=== PATIENT | female | born 1960 | race Caucasian/White ===

== ENCOUNTER 2020-10-20 07:38 | Outpatient (CLI) | payer BC, SELFPAY ==
[2020-10-20 09:13] LABS: SARS-CoV-2 RNA PCR Negative (Negative)
== END 2020-10-20 07:39 | disposition home or self-care (01) ==
LOC: CHSLAB 07:44
PROVIDERS: PCP Family Medicine; Visit Provider Family Medicine
DX: Z01.818 Encounter for other preprocedural examination (principal); Z20.822 Contact with and (suspected) exposure to COVID-19
CPT/HCPCS: C9803; U0003; U0005

== ENCOUNTER 2024-02-23 00:47 | Day surgery (SDC) | payer BC, SELFPAY ==
[2024-02-05 08:45] VITALS: BMI 26.7
[2024-02-23 12:31] VITALS: BP 148/76; PULSE 70; RESP 16; TEMP 36.1; O2SAT 100
[2024-02-23] MEDS: LACTATED RINGERS 1,000 ML 150 ML IV CONT (12:39)
--- NOTE | 2024-02-23 12:46 | P.PNAN_ITS ---
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 Patient Data Age: 63 Gender: F Height: 1.65 m Weight: 74.8 kg Last Vital Signs Temp 97 F L 02/23/24 12:31 Pulse 70 02/23/24 12:31 Resp 16 02/23/24 12:31 BP 148/76 H 02/23/24 12:31 Pulse Ox 100 02/23/24 12:31 O2 Del Method Room Air 02/23/24 12:31 Allergies Allergy/AdvReac Type Severity Reaction Status Date / Time Latex, Natural Rubber Allergy Severe Anaphylactic Verified 02/23/24 12:29 Shock shellfish derived Allergy Mild Unknown Verified 02/23/24 12:29 Sulfa (Sulfonamide Allergy Mild Unknown Verified 02/23/24 12:29 Antibiotics) Home Medications Medication Instructions Recorded Confirmed Type omeprazole 20 mg capsule,delayed 20 mg PO DAILY #90 caps 12/27/23 02/05/24 Rx release Patient hx anesthesia problems: none Family hx anesthesia problems: none Results Review: All pre-operative results and documents have been reviewed as part of the pre- operative evaluation. [facility] Past Medical History Medical History (Updated 12/27/23 @ 16:19 by Lyssa Weinstein APRN) GERD (gastroesophageal reflux disease) Surgical History Surgical History (Updated 12/27/23 @ 15:35 by Fern Schmitz MA) H/O: hysterectomy Family History Family History (Updated 12/27/23 @ 15:36 by Fern Schmitz MA) Father Esophageal cancer Father Heart disease Social History Social History (Updated 12/27/23 @ 15:37 by Fern Schmitz MA) Smoking status: Never smoker Alcohol intake: never Substance use: never Substance use type: does not use Living arrangements: alone Occupation/Education: occupation Gender identity (if verbalized by the patient): Female Spiritual care concerns: No Anes - Eval Final PreProcedure Day of Procedure 02/23/24 12:46 Patient weight: normal Heart: regular rate and rhythm Lungs: clear to auscultation Airway: Mallampati scale class II Neurological: alert and oriented Last oral intake: >/= 8 hours ASA classification: II Emergent: no Anesthetic plan: proceed Anesthesia type and monitoring: general GIVS and standard monitoring Results Review: All pre-operative results and documents have been reviewed as part of the pre- operative evaluation. Informed Consent: The patient's anesthetic plan and its attendant risks and benefits were discussed with the patient/family/POA. Questions were solicited and answers provided to the satisfaction of the patient/family/POA.
--- NOTE | 2024-02-23 12:52 | PM.HPGS ---
History of Present Illness History of Present Illness Consent: Risks, benefits, and alternatives have been discussed and questions answered. Patient agrees to proceed with procedure. Chief complaint: Tena's esophagus without dysplasia Narrative: Isela Archibald is a 63 year old female with tena's, last egd 2020 Review of Systems Review of Systems: All systems reviewed & are unremarkable except as noted in HPI and below PMFSH Past Medical History Medical History (Updated 12/27/23 @ 16:19 by Lyssa Weinstein APRN) GERD (gastroesophageal reflux disease) Surgical History Surgical History (Updated 12/27/23 @ 15:35 by Fern Schmitz MA) H/O: hysterectomy Family History Family History (Updated 12/27/23 @ 15:36 by Fern Schmitz MA) Father Esophageal cancer Father Heart disease Social History Social History (Updated 12/27/23 @ 15:37 by Fern Schmitz MA) Smoking status: Never smoker Alcohol intake: never Substance use: never Substance use type: does not use Living arrangements: alone Occupation/Education: occupation Gender identity (if verbalized by the patient): Female Spiritual care concerns: No Meds Home Medications and Allergies Home Medications Medication Instructions Recorded Confirmed Type omeprazole 20 mg capsule,delayed 20 mg PO DAILY #90 caps 12/27/23 02/05/24 Rx release Allergies Allergy/AdvReac Type Severity Reaction Status Date / Time Latex, Natural Rubber Allergy Severe Anaphylactic Verified 02/23/24 12:29 Shock shellfish derived Allergy Mild Unknown Verified 02/23/24 12:29 Sulfa (Sulfonamide Allergy Mild Unknown Verified 02/23/24 12:29 Antibiotics) Vital Signs Vital Signs - 24 hr 02/23/24 12:31 Temperature 97 F L Pulse Rate 70 Respiratory Rate 16 Blood Pressure 148/76 H Pulse Oximetry 100 Oxygen Delivery Room Air Exam Const: General: comfortable and no acute distress HENMT: Face/Nose/Sinus: Normal nares present Eyes: General: appearance normal, both eyes and all related structures Neck: Neck: no JVD Resp: Auscultation: clear to auscultation bilaterally Cardio: Rate: regular rate Rhythm: regular rhythm GI: Inspection: non-distended GI Palp: Yes Soft to palpation Skin: General skin exam: normal color Neuro: General: gait normal Speech: normal speech Extrem: General: normal to inspection Psych: Mental Status: mental status grossly normal Assessment and Plan Assessment and plan (1) Barretts esophagus: Code(s): K22.70 - Tena's esophagus without dysplasia Status: Acute Assessment and Plan: egd already on ppi
[2024-02-23 12:58] VITALS: BP 127/63; PULSE 79; RESP 18; O2SAT 100
[2024-02-23 13:08] VITALS: BP 115/77; PULSE 67; RESP 18; O2SAT 98
[2024-02-23 13:18] VITALS: BP 130/66; PULSE 61; RESP 16; O2SAT 100
== END 2024-02-23 13:40 | disposition home or self-care (01) ==
PROVIDERS: Referring Provider Nurse Practitioner; Visit Provider Internal Medicine Gastroenterology
PROC: 0DJ08ZZ Inspection of Upper Intestinal Tract, Via Natural or Artificial Opening Endoscopic (ICD-10-PCS; CPT 43235; principal; 2024-02-23 14:00)
DX: Z09 Encounter for follow-up examination after completed treatment for conditions other than malignant neoplasm (principal); K21.9 Gastro-esophageal reflux disease without esophagitis; Z87.19 Personal history of other diseases of the digestive system
CPT/HCPCS: 43239; 88305; J2704; J7120

== ENCOUNTER 2024-11-19 08:01 | Outpatient (CLI) | payer MEDICARE, OTHER, SELFPAY ==
--- NOTE | ~2024-11-19 | XR_ITS ---
XR knee LT min 4V 11/19/2024 08:22 Indication: Left knee pain Procedure: 5 views left knee Comparison: No prior studies for comparison. Findings: Moderate tricompartment osteoarthritis. No joint effusion. There is anatomic alignment. No foreign bodies. Impression: 1: Moderate tricompartment osteoarthritis of the left knee. Reviewed, dictated and finalized at location A. Impression: 1: Moderate tricompartment osteoarthritis of the left knee.
--- OUTSIDE RECORDS SUMMARY | 2024-11-19 08:10 | XMS_ITS | Clinical Summary ---
Author Organization [facility] [employer] Address [address] [address] Care Team Providers Care Early Intervention Specialist Name Role Phone Unavailable Primary Care Provider Unavailabl e Source Comments [facility] [employer],non-owned Affiliates and Associated Physician Practices is amultiple site organization consisting of ambulatory clinics and hospital sitesin [place], [place], [place] and [place]. This disclosure is being madepursuant to the Care Everywhere program and may not contain all information available regarding this patient. Last updated 18.[facility] [employer] Allergies Active Allergy Reactions Criticality Noted Date Comments Latex Anaphylaxis High 04/01/2019 Sulfa Drugs Rash Medium 04/01/2019 Medications * Be aware that medications may not be up to date on this document. Alwaysverify current medications with the patient. EPINEPHrine (EPIPEN) 0.3 MG/0.3ML auto-injector pen Inject 0.3 mg into muscle once Active predniSONE (DELTASONE) 20 MG tablet Take 3 tabs on days 1-5, then 2 tabs on days 6-10, then 1 tab on days 11-15 30 tablet 04/01/2019 Active Social History Tobacco Use Types Packs/Day Years Used Date Smoking Tobacco: Never Smokeless Tobacco: Never Comments No Sex and Gender Information Value Date Recorded Sex Assigned at Not on file Legal Sex Female 8:50 AM CDT Gender Identity Not on file Sexual Orientation Not on file Last Filed Vital Signs Vital Sign Reading Time Taken Comments Blood Pressure 118/80 01/18/2021 5:26 PM CDT Pulse 87 01/18/2021 5:26 PM CDT Temperature 37.2 C (98.9 F) 01/18/2021 5:26 PM CDT Respiratory Rate 16 01/18/2021 5:26 PM CDT Oxygen Saturation 98% 01/18/2021 5:26 PM CDT Inhaled Oxygen Concentration - - Weight 70.3 kg (155 lb) 01/18/2021 5:26 PM CDT Height 170.2 cm (5' 7 ) 01/18/2021 5:26 PM CDT Body Mass Index 24.28 01/18/2021 5:26 PM CDT Plan of Treatment Health Maintenance Due Date Last Done Comments BONE DENSITY TESTING 1960 COLOGUARD (AGES 45-75) - COL ON CA SCREENING 1959 COLON MONITORING 1959 COLONOSCOPY - COLON CA SCREENING 1959 CT COLONOGRAPHY - COLON CA SCREENING 1960 Colorectal Cancer Screening 1959 FIT - COLON CA SCREENING 1959 FLEX SIG - COLON CA SCREENING 1959 LIPID TESTING 1960 MAMMOGRAM 1960 PAP SMEAR 1959 HIV SCREENING 09/24/1974 HEPATITIS C SCREENING 09/20/1977 DTAP/TDAP/TD VACCINES (1 - Tdap) 09/24/1978 PNEUMOCOCCAL VACCINE 50+ (1 of 1 - PCV) 09/24/2009 ZOSTER VACCINE (1 of 2) 09/24/2009 COVID-19 VACCINE (3 - 2023-2 5 season) 2024 08/08/2020, 07/11/2020 DEPRESSION SCREENING 07/17/2024 INFLUENZA VACCINE (Season Ended) 2025 Respiratory Syncytial Virus (RSV) Vaccine Pt: or over 60 yrs (1 - 1-dose 75+ series) 09/24/2034 HEPATITIS B VACCINE Aged Out No longe r eligible based on patient's age to complete this topic HIB VACCINE Aged Out No longer eligi ble based on patient's age to complete this topic HPV VACCINE Aged Out No longer eligi ble based on patient's age to complete this topic MENINGOCOCCAL (Group B) VACCINE SHARED DECISION-MAKING Aged Out No longer eligible based on patient's age to complete this topic MENINGOCOCCAL GROUPS A/C/Y/W VACCINE Aged Out No longer eligible b ased on patient's age to complete this topic Insurance [facility] Address: [facility] [id number] [place] [address] SELF PAY NO INSURANCE Member Subscriber Plan / Payer (Ef fective for All Dates) Name:Juan Francisco Aiken Member ID:Not on file Relation to Subscriber:Not on file Name:JUAN FRANCISCO AIKEN Subscriber ID:Not on file (Home) Address: [address] [place] [id number] Payer ID:Not on file Group ID:Not on file Type:Self Pay Address: [place], [place]
--- OUTSIDE RECORDS SUMMARY | 2024-11-19 08:10 | XMS_ITS | Clinical Summary ---
Author Organization [facility] Address [facility] [place] [address] Care Team Providers Care Bingo Caller Name Role Phone Nidia Florentino MD Primary Care Provider [phone] Allergies Active Allergy Reactions Criticality Noted Date Comments Latex Anaphylaxis High 04/01/2019 Sulfa Antibiotics Rash Medium 04/01/2019 Medications omeprazole (PRILOSEC) 20 MG capsule Take 1 capsule (20 mg total) by mouth daily. 12/27/2023 Active HYDROcodone-selene taminophen (NORCO) 5-325 MG tabletIndicatio ns:Acute Pain < 7 Day Supply Take 1 tablet by mouth every 6 (six) hours as needed. Indications: Acute Pain < 7 Day Supply 21 tablet 08/08/2024 Active Social History Tobacco Use Types Packs/Day Years Used Date Smoking Tobacco: Never Smokeless Tobacco: Never Tobacco Cessation:Counseling Given: Not Answered Alcohol Use Standard Drinks/Week Comments Not Currently 0 (1 standard drink = 0.6 oz pur e alcohol) Comments No Sex and Gender Information Value Date Recorded Sex Assigned at Female 08/08/2024 8:01 AM 3D ANIMATOR Legal Sex Female 10:26 PM 3D ANIMATOR Gender Identity Not on file Sexual Orientation Not on file Last Filed Vital Signs Vital Sign Reading Time Taken Comments Blood Pressure 120/64 08/08/2024 1:17 PM 3D ANIMATOR Pulse 74 08/08/2024 1:17 PM 3D ANIMATOR Temperature 36.8 C (98.2 F) 08/08/2024 1:17 PM 3D ANIMATOR Respiratory Rate 18 08/08/2024 1:17 PM 3D ANIMATOR Oxygen Saturation 100% 08/08/2024 1:17 PM 3D ANIMATOR Inhaled Oxygen Concentration - - Weight 77.2 kg (170 lb 3.1 oz) 08/08/2024 8:46 A M 3D ANIMATOR Height 165.1 cm (5' 5 ) 07/31/2024 2:07 PM 3D ANIMATOR Body Mass Index 28.32 07/31/2024 2:07 PM 3D ANIMATOR Plan of Treatment Health Maintenance Due Date Last Done Comments Colorectal Cancer Screening Colonoscopy (10 Years) 1960 Hepatitis C 09/24/1977 DTaP, Tdap and Td Vaccines (1 - Tdap) 09/24/1978 Pneumococcal Vaccine: 50+ Years (1 of 1 - PCV) 09/24/2009 Zoster Vaccines (2 of 2) 03/29/2021 02/01/2021 COVID-19 Vaccine (3 - season) 2024 08/08/2020, 07/11/2020 Mammogram Screening 06/07/2026 06/07/2024, 04/26/2023, 02/14/2022, Additional history exists RSV Immunization or 60+ Years (1 - 1-dose 75+ series) 09/24/2034 Dexa Scan (General) Completed 04/26/2023, Meningococcal B Vaccine Aged Out No l onger eligible based on patient's age to complete this topic Meningococcal Vaccine Aged Out No ana jing eligible based on patient's age to complete this topic RSV Immunizations Under 20 Months Aged Out No longer eligible based on patient's age to complete this topic Medical Devices Implanted Type Area Byproducts Operator Device Identifier Shelf Expiration Date Model / Serial / Lot Viaflow Flowable Placental Tissue Matrix Implanted:Qty: 1 on 08/08/2024 by Alex Downs DPM at [facility] [employer] [id number] / [id number] / Procedures Procedure Name Priority Date/Time Associated Diagnosis Comments MG SCREENING W ASHLEY ANGELA DIGI Routine 06/07/2024 10:45 AM 3D ANIMATOR Breast cancer screening BONE DENSITY/DEXA Routine 04/26/2023 1:4 2 PM CDT Menopause from Last 3 Months or Most Recently Relevant to Health Maintenance Results * MG SCREENING W ASHLEY ANGELA DIGI (06/07/2024 10:45 AM 3D ANIMATOR) Anatomical Region Laterality Modality Breast Bilateral Mammography 06/07/2024 1:59 PM 3D ANIMATOR Impressions 06/07/2024 2:00 PM 3D ANIMATOR IMPRESSION: No suspicious change since the previous exams. Recommendation: 1: Routine Screening Bilateral in 1 Year Assessment: ACR BI-RADS 2 - BENIGN FINDING(S) Ordered By: NIDAI FLORENTINO Interpreted By: Curtis Malhotra MD, 06/07/2024 1:59 PM Narrative 06/07/2024 2:00 PM 3D ANIMATOR [address] [place] [address] Examination: Digital screening mammogram with CAD. Clinical history: Asymptomatic patient presents for routine screening. Comparison: 04/26/2023, 02/14/2022, 02/08/2021, 09/27/2019. Technique: Bilateral digital mammograms. The exam was interpreted with the use of a computer-aided detection (CAD) system. Additional 3-D tomosynthesis images were acquired. Tissue density: The breast tissue is heterogeneously dense. Findings: The breast tissue is heterogeneously dense. The dense tissue may obscure some lesions mammographically. Benign-appearing calcification noted. No suspicious mass, microcalcification or area of architectural distortion can be identified. From a mammographic standpoint, routine followup in one year would seem adequate. us Nidia Florentino MD MAMMO Final Result * BONE DENSITY/DEXA (04/26/2023 1:42 PM CDT) Anatomical Region Laterality Modality Bone Bone Density 04/26/2023 3:46 PM CDT Impressions 04/26/2023 3:48 PM CDT Impression: Normal BMD. There is a decrease in the BMD in the spine and an increase in the BMD in the hip since 02/08/2021. Ordered By: NIDIA FLORENTINO Interpreted By: Saturnino Mejía MD, 04/26/2023 3:46 PM Narrative 04/26/2023 3:48 PM CDT Examination: DEXA Bone densitometry EXAM DATE: 04/26/2023 1:23 PM Clinical history: Postmenopausal female here for bone mineral density evaluation. Follow-up on 02/08/2021. She is taking medication for bone loss. Hysterectomy. Technique: DEXA bone minimal density evaluation was performed in the AP projection over the lumbar spine and over both hips in the AP projection utilizing standard imaging techniques. Assessment: The BMD measured at the AP spine L1-L4 is 0.944 g/cm2 with a T-score of -0.9 and a Z-Score of 0.7. There is a -3.5% change from 02/08/2021, which is statistically significant. The BMD measured at the femur total left is 0.932 g/cm2 with a T-score of -0.1 and a Z-Score of 1.1. There is a 1% change from prior study which is not statistically significant. The BMD measured at the femur total right is 0.985 g/cm2 with a T-score of 0.4 and aZ-Score of 1.5. There is a 5.5% change from the prior study which is statistically significant. Recommendations: All patients should ensure an adequate intake of dietary calcium and vitamin D. The NOF recommend adults under the age of 50 need 1000 mg of calcium and 400-800 IU of vitamin D daily. Effective therapy for the prevention and treatment of osteoporosis include biphosphonates. Follow-up: People with diagnosed cases of osteoporosis or at high risk for fracture should have regular bone mineral density test. For patients eligible for Medicare, routine testing is allowed once every 2 years. Testing frequency can be increased to one year for patients who have rapidly progressing disease, those who are receiving or discontinuing medical therapy to restore bone mass, or have additional risk factors. Based on these results, a followup exam is recommended in April 2025 Procedure Note Saturnino Mejía MD - 04/26/2023 Examination: DEXA Bone densitometry EXAM DATE: 04/26/2023 1:23 PM Clinical history: Postmenopausal female here for bone mineral densityevaluation. Follow-up on 02/08/2021. She is taking medication for boneloss. Hysterectomy. Technique: DEXA bone minimal density evaluation was performed in the APprojection over the lumbar spine and over both hips in the AP projectionutilizing standard imaging techniques. Assessment: The BMD measured at the AP spine L1-L4 is 0.944 g/cm2 with a T-score of-0.9 and a Z-Score of 0.7. There is a -3.5% change from 02/08/2021, whichis statistically significant. The BMD measured at the femur total left is 0.932 g/cm2 with a T-score of-0.1 and a Z-Score of 1.1. There is a 1% change from prior study which isnot statistically significant. The BMD measured at the femur total right is 0.985 g/cm2 with a T-score of0.4 and aZ-Score of 1.5. There is a 5.5% change from the prior studywhich is statistically significant. Recommendations: All patients should ensure an adequate intake of dietary calcium andvitamin D. The NOF recommend adults under the age of 50 need 1000 mg ofcalcium and 400-800 IU of vitamin D daily. Effective therapy for theprevention and treatment of osteoporosis include biphosphonates. Follow-up: People with diagnosed cases of osteoporosis or at high risk for fractureshould have regular bone mineral density test. For patients eligible forMedicare, routine testing is allowed once every 2 years. Testing frequencycan be increased to one year for patients who have rapidly progressingdisease, those who are receiving or discontinuing medical therapy torestore bone mass, or have additional risk factors. Based on these results, a followup exam is recommended in April 2025 Impression: Normal BMD. There is a decrease in the BMD in the spine and an increase in the BMD inthe hip since 02/08/2021. Ordered By: NIDIA FLORENTINO Interpreted By: Saturnino Mejía MD, 04/26/2023 3:46 PM us Nidia Florentino MD DEXA Final Result from Last 3 Months or Most Recently Relevant to Health Maintenance Insurance [facility] Care Teams Bingo Caller Relationship Specialty Start Date End Date Nidia Florentino MD [address] [place] [address] [place] [id number] PCP - General FAMILY PRACTICE 09/18/19
== END 2024-11-19 08:02 | disposition home or self-care (01) ==
LOC: CHSIMG 08:07
PROVIDERS: PCP Family Medicine; Visit Provider Orthopaedic Surgery
DX: M25.562 Pain in left knee (principal); M17.12 Unilateral primary osteoarthritis, left knee
CPT/HCPCS: 73564